=== PATIENT | female | born 1995 | race Caucasian/White ===

== ENCOUNTER 2018-05-14 02:12 | Emergency (ER) | payer BC ==
[~2018-05-14] VITALS: Ht 162.5 cm; Wt 52.2 kg
[~2018-05-14 02:12] MED LIST: AMOXICILLIN875 MG PO; PREDNISONE50 MG PO; ZYRTEC10 MG PO
[2018-05-14] MEDS ORDERED: KETOROLAC10 MG PO ×2 (03:05→03:07)
[2018-05-14] MEDS ORDERED: AMOXICILLIN500 M2 PO (03:05)
== END 2018-05-14 03:28 | disposition home or self-care (01) ==
LOC: ED 02:12
DX: K04.01 Reversible pulpitis (principal); K02.9 Dental caries, unspecified; Z88.6 Allergy status to analgesic agent; Z91.040 Latex allergy status

== ENCOUNTER 2018-06-26 20:20 | Emergency (ER) | payer BC ==
[~2018-06-26] VITALS: Ht 162.5 cm; Wt 54.4 kg
[~2018-06-26 20:20] MED LIST changes: +AMOXICILLIN500 M2 PO; +KETOROLAC10 MG PO
[2018-06-26] MEDS ORDERED: AUGMENTIN 875-875 MG PO (21:08)
[2018-06-26] MEDS ORDERED: KETOROLAC10 MG PO (21:08)
== END 2018-06-26 21:54 | disposition home or self-care (01) ==
LOC: ED 20:20
DX: K08.89 Other specified disorders of teeth and supporting structures (principal); Z88.5 Allergy status to narcotic agent; Z91.040 Latex allergy status; Z79.2 Long term (current) use of antibiotics; Z79.899 Other long term (current) drug therapy

== ENCOUNTER 2018-09-07 08:57 | Emergency (ER) | payer BC ==
[~2018-09-07] VITALS: Ht 162.5 cm; Wt 54.4 kg
[~2018-09-07 08:57] MED LIST changes: +AUGMENTIN 875-875 MG PO
[2018-09-07] MEDS ORDERED: MEDROL DOSEPAK4 MG PO (09:37)
[2018-09-07] MEDS ORDERED: AUGMENTIN 875875 MG PO (09:37)
[2018-09-07] MEDS ORDERED: FLONASE ALLERG9.9 ML NAS (09:37)
== END 2018-09-07 09:40 | disposition home or self-care (01) ==
LOC: ED 08:57
DX: J01.90 Acute sinusitis, unspecified (principal); L02.411 Cutaneous abscess of right axilla

== ENCOUNTER → 2021-01-23 | Outpatient (CLI) | payer BC ==
[~2021-01-23] MED LIST changes: +AUGMENTIN 875875 MG PO; +FLONASE ALLERG9.9 ML NAS; +MEDROL DOSEPAK4 MG PO
== END | disposition home or self-care (01) ==
LOC: COVID19 16:21
PROVIDERS: ATTEND Hospitalist
DX: Z11.52 Encounter for screening for COVID-19 (principal)